=== PATIENT | female | born 1975 | race Caucasian/White ===

== ENCOUNTER 2020-07-31 22:48 | Emergency (ER) | payer MEDICAID ==
[~2020-07-31] VITALS: Ht 167.6 cm; Wt 81.6 kg
[2020-07-31 22:55] VITALS: BP 118/83
[2020-07-31] MEDS ORDERED: NACL 0.9% 1,000 ML IV ONE (23:50)
[2020-08-01 00:05] LABS: HEMATOCRIT 32.7 % (36-48); HEMOGLOBIN 10.5 g/dL (12.0-16.0); MEAN CORPUSCULAR HEMOGLOBIN 23 pg (27-31); MEAN CORPUSCULAR HGB CONC 32 g/dL (33-37); MEAN CORPUSCULAR VOLUME 72.4 fL (80-94); PLATELET COUNT (AUTO) 331 K/uL (140-450); RED BLOOD CELL COUNT(AUTO) 4.51 MIL/uL (4.20-5.40); RED CELL DISTRIBUTION WIDTH 22.8 % (11.6-13.7); WHITE BLOOD COUNT (AUTO) 5.5 K/uL (4.8-10.8)
[2020-08-01 00:22] LABS: ALBUMIN 3.8 g/dL (3.4-5.0); ANION GAP 13.6 (8-16); CARBON DIOXIDE 25.9 mmol/L (21-32); CREATININE 0.7 mg/dL (0.6-1.3); POTASSIUM 3.5 mmol/L (3.5-5.1); TOTAL BILIRUBIN 0.2 mg/dL (0.0-1.0)
[2020-08-01 00:29] LABS: EOSINOPHILS % (MANUAL) 1 % (0-4); LYMPHOCYTES % (MANUAL) 38 % (20-46); MONOCYTES % (MANUAL) 5 % (5-12)
[2020-08-01 00:48] VITALS: BP 114/76
== END 2020-08-01 02:05 | disposition home or self-care (01) ==
LOC: MED 22:48
DX: R55 Syncope and collapse (principal); R42 Dizziness and giddiness; I95.9 Hypotension, unspecified; D64.9 Anemia, unspecified
CPT/HCPCS: 36415; 80053; 84484; 85025; 93005; 96360; 99284; J7030; 99283

== ENCOUNTER 2022-03-15 11:46 | Emergency (ER) | payer MEDICAID ==
[~2022-03-15] VITALS: Ht 167.6 cm; Wt 107.0 kg
[2022-03-15 11:57] VITALS: BP 118/71
--- NOTE | 2022-03-15 12:50 | NUR ---
PT AMBULATED TO BED 12
--- NOTE | 2022-03-15 12:54 | NUR ---
46Y FEMALE BIB SELF DUE TO ABDOMINAL PAIN THAT RADIATES TO HER R FLANK REGION. PT ALSO EXPERINCING N/V/D X2 DAYS. PT TOOK ZOFRAN AT HOME WHICH PROVIDED SOME RELIEF. PAIN CURRENTLY 10/10, CRAMPING LIKE. PT A&OX4. BOWEL SOUNDS ACTIVE. DENIES ANY CP/SOB. PMH: ASTHMA NKA
[2022-03-15 13:16] LABS: BASOPHILS % (AUTO) 0.5 % (0.0-2.0); EOSINOPHILS # (AUTO) 0.1 K/uL (0-0.4); EOSINOPHILS % (AUTO) 2.1 % (0.0-4.0); HEMATOCRIT 30.7 % (36-48); HEMOGLOBIN 9.8 g/dL (12.0-16.0); LYMPHOCYTES # (AUTO) 1.6 K/uL (2.5-16.5); LYMPHOCYTES % (AUTO) 32.7 % (20.5-51.1); MEAN CORPUSCULAR HEMOGLOBIN 22 pg (27-31); MEAN CORPUSCULAR HGB CONC 32 g/dL (33-37); MONOCYTES # (AUTO) 0.5 K/uL (0.8-1.0); MONOCYTES % (AUTO) 9.3 % (1.7-9.3); NEUTROPHILS # (AUTO) 2.8 K/uL (1.8-7.7); NEUTROPHILS % (AUTO) 55.4 % (42.2-75.2); PLATELET COUNT (AUTO) 456 K/uL (140-450); RED BLOOD CELL COUNT(AUTO) 4.39 MIL/uL (4.20-5.40); RED CELL DISTRIBUTION WIDTH 15.3 % (11.6-13.7)
[2022-03-15 13:17] LABS: ALBUMIN 3.9 g/dL (3.4-5.0); ANION GAP 9.4 (8-16); CARBON DIOXIDE 25.4 mmol/L (21-32); CREATININE 0.7 mg/dL (0.6-1.3); POTASSIUM 3.8 mmol/L (3.5-5.1); TOTAL BILIRUBIN 0.3 mg/dL (0.0-1.0)
[2022-03-15] MEDS ORDERED: KETOROLAC 30 MG/ML VIAL IVP ONE (13:25)
[2022-03-15] MEDS ORDERED: NACL 0.9% 1,000 ML IV ONE (13:25)
--- NOTE | 2022-03-15 13:29 | NUR ---
PT TAKEN TO CT VIA [facility]
--- NOTE | 2022-03-15 13:55 | NUR ---
PT PROVIDED WITH WARM BLANKET. VSS. PT RESTING IN BED WITH EYES OPEN
[2022-03-15] MEDS ORDERED: NAPR-1847 PO (14:28)
[2022-03-15] MEDS ORDERED: MORPHINE SULFATE 4 MG/ML SYR IVP ONE (14:45)
[2022-03-15 15:13] LABS: APPEARANCE,URINE HAZY (CLEAR); BILIRUBIN,URINE NEGATIVE (NEGATIVE); BLOOD, URINE TRACE-I (NEGATIVE); COLOR,URINE YELLOW (YELLOW); LEUKOCYTE ESTERASE ,URINE 1+ (NEGATIVE); NITRITE, URINE NEGATIVE (NEGATIVE); UGLUCOSE NEGATIVE (NEGATIVE)
[2022-03-15 15:46] LABS: RBC,URINE 0-5 /HPF (0-5); WBC,URINE 0-5 /HPF (0-5)
--- NOTE | 2022-03-15 16:04 | NUR ---
US AT PATIENT BEDSIDE
[2022-03-15 17:21] VITALS: BP 96/57
== END 2022-03-15 17:21 | disposition home or self-care (01) ==
LOC: MED 11:46
DX: D25.9 Leiomyoma of uterus, unspecified (principal); R11.2 Nausea with vomiting, unspecified; J45.909 Unspecified asthma, uncomplicated; Z79.1 Long term (current) use of non-steroidal anti-inflammatories (NSAID)
CPT/HCPCS: 36415; 74176; 76856; 80053; 81001; 81025; 85025; 87086; 93976; 96361; 96374; 96375; 99285; J1885; J2270; J7030; Q0092